=== PATIENT | female | born 1950 | race Two or more races ===

== ENCOUNTER → 2024-08-08 | Outpatient (CLI) | payer OTHER, MEDICAID, SELFPAY ==
[2024-08-08 11:16] LABS: Collection Type, Urine Clean Catch
[2024-08-08 11:34] LABS: Basophils # (Auto) 0.1 Thou/mm3 (0.0-0.2); Basophils % (Auto) 1 % (0-2.5); Eosinophils # (Auto) 0.3 Thou/mm3 (0.0-0.5); Eosinophils % (Auto) 6 % (0-10); Hematocrit 37.1 % (36.0-46.0); Hemoglobin 12.3 g/dL (12.0-16.0); Immature Granulocytes % (Auto) 1 % (0-0); Immature Granulocytes Auto 0.03 Thou/mm3 (0.00-0.00); Lymphocytes # (Auto) 1.3 Thou/mm3 (1.0-4.8); Lymphocytes % (Auto) 22 % (10-50); Mean Corpuscular HGB Conc 33.2 g/dl (31.0-37.0); Mean Corpuscular Hemoglobin 27.3 pg (25.0-35.0); Mean Corpuscular Volume 82 fL (80-100); Monocytes # (Auto) 0.5 Thou/mm3 (0.0-0.8); Monocytes % (Auto) 8 % (0-12); Neutrophils # (Auto) 3.5 Thou/mm3 (1.8-7.7); Neutrophils % (Auto) 62 % (37-80); Nucleated Red Blood Cell % 0 /100 WBC (0); Platelet Count 310 Thou/mm3 (140-440); RDW Standard Deviation 42.3 fL (36.4-46.3); Red Blood Count 4.51 Miln/mm3 (4.00-5.20); White Blood Count 5.6 Thou/mm3 (3.6-11.0)
[2024-08-08 11:39] LABS: Bilirubin,Urine Negative (Negative); Blood,Urine Negative (Negative); Clarity,Urine Clear (Clear/Hazy); Color,Urine Lt-Yellow (Lt Yel-Yel); Culture Indicated,Urine Not Indicated; Glucose, Urine Negative (Negative); Ketones,Urine Negative (Negative); Leukocyte Esterase,Urine Negative (Negative); Nitrite,Urine Negative (Negative); PH,Urine 6.5 (5.0-7.0); Protein,Urine Negative (Neg - Trace); RBC,Urine < 1 /hpf (0-3); Specific Gravity,Urine 1.013 (1.001-1.035); Squamous Epithelial Cell,Urine 7 /hpf (0-5); Urobilinogen,Urine Negative mg/dL (0.0-1.0); WBC,Urine 2 /hpf (0-5)
[2024-08-08 12:06] LABS: Alanine Aminotransferase 17 U/L (10-49); Albumin, Serum 4.7 gm/dL (3.4-4.8); Alkaline Phosphatase 89 U/L (46-116); Anion Gap 6 (7-16); Aspartate Amino Transferase 21 U/L (0-34); BUN/Creatinine Ratio 13 Ratio (12-20); Bilirubin,Total 0.6 mg/dL (0.3-1.2); Blood Urea Nitrogen 13 mg/dL (9-23); Calcium 10.8 mg/dL (8.3-10.6); Calcium (Corrected) 10.8 mg/dL (8.5-10.1); Carbon Dioxide 29.4 mMol/L (20.0-31.0); Cardiac Risk Estimate 3.7 RATIO (3.7-5.6); Chloride 103 mMol/L (98-107); Cholesterol 207 mg/dL (132-200); Free T4 (Free Thyroxine) 1.29 ng/dL (0.89-1.76); Globulin 2.3 gm/dL (2.3-3.5); Glucose 89 mg/dL (74-106); HDL Cholesterol 56 mg/dL (40-60); LDL Cholesterol,Calculated 123 mg/dL (0-130); Osmolality,Calculated 274 (275-295); Potassium 4.1 mMol/L (3.4-5.1); Sodium 138 mMol/L (136-145); Thyroid Stimulating Hormone 2.96 uIU/mL (0.55-4.78); Triglycerides 138 mg/dL (30-150); eGFR 58 See Note
== END | disposition home or self-care (01) ==
PROVIDERS: PCP Internal Medicine; Referring Provider Internal Medicine; Visit Provider Internal Medicine
DX: I10 Essential (primary) hypertension (principal)
CPT/HCPCS: 36415; 80053; 80061; 81001; 84439; 84443; 85025

== ENCOUNTER → 2024-10-08 | Outpatient (CLI) | payer OTHER, MEDICAID, SELFPAY ==
--- NOTE | 2024-10-08 10:31 | XR_ITS ---
Examination: PA lateral chest 2 views TECHNIQUE: Upright PA lateral chest 2 views Exam date and time: October 08, 2024 at 10:50 AM Comparison 11/23/2021 INDICATIONS: Coughing beginning 4 months ago. FINDINGS: Minimal accentuation basilar bronchovascular markings Mild hyperexpansion Thoracic levoscoliosis 15 degrees Normal heart size IMPRESSION: Mild bibasilar bronchitis pattern
[2024-10-08 13:46] LABS: Basophils # (Auto) 0.1 Thou/mm3 (0.0-0.2); Basophils % (Auto) 1 % (0-2.5); Eosinophils # (Auto) 0.8 Thou/mm3 (0.0-0.5); Eosinophils % (Auto) 11 % (0-10); Hematocrit 35.6 % (36.0-46.0); Hemoglobin 12.1 g/dL (12.0-16.0); Immature Granulocytes % (Auto) 0 % (0-0); Immature Granulocytes Auto 0.03 Thou/mm3 (0.00-0.00); Lymphocytes # (Auto) 1.2 Thou/mm3 (1.0-4.8); Lymphocytes % (Auto) 18 % (10-50); Mean Corpuscular Hemoglobin 28.1 pg (25.0-35.0); Mean Corpuscular Volume 83 fL (80-100); Monocytes # (Auto) 0.7 Thou/mm3 (0.0-0.8); Monocytes % (Auto) 10 % (0-12); Neutrophils % (Auto) 60 % (37-80); Nucleated Red Blood Cell % 0 /100 WBC (0); Platelet Count 320 Thou/mm3 (140-440); RDW Standard Deviation 43.1 fL (36.4-46.3); Red Blood Count 4.31 Miln/mm3 (4.00-5.20); White Blood Count 6.7 Thou/mm3 (3.6-11.0)
[2024-10-09 14:35] LABS: Cocci Serology, IgM Negative (Negative)
[2024-10-10 14:13] LABS: Cocci Serology, IgG Negative (Negative)
== END | disposition home or self-care (01) ==
LOC: COPL 10:22
PROVIDERS: PCP Internal Medicine; Referring Provider Internal Medicine; Visit Provider Radiology Diagnostic Radiology
DX: R05.9 Cough, unspecified (principal)
CPT/HCPCS: 36415; 71046; 85025; 86331; 86635

== ENCOUNTER → 2024-12-03 | Outpatient (CLI) | payer OTHER, MEDICAID, SELFPAY ==
--- NOTE | 2024-12-03 13:21 | XR_ITS ---
Examination: Sinus series 3 views TECHNIQUE: Rosalva Frank lateral sinus series 3 views Exam date and time: December 03, 2024 1348 hours INDICATIONS: Sinus pressure and pain years. FINDINGS: Opacity in the frontal ethmoid air cells and maxillary antra No fluid levels No retention cysts IMPRESSION: Chronic sinusitis
[2024-12-03 14:51] LABS: Albumin, Serum 5.4 gm/dL (3.4-4.8); Anion Gap 9 (7-16); BUN/Creatinine Ratio 18 Ratio (12-20); Blood Urea Nitrogen 18 mg/dL (9-23); Calcium 10.8 mg/dL (8.3-10.6); Calcium (Corrected) 10.8 mg/dL (8.5-10.1); Carbon Dioxide 28.6 mMol/L (20.0-31.0); Chloride 105 mMol/L (98-107); Glucose 96 mg/dL (74-106); Osmolality,Calculated 286 (275-295); Phosphorous 2.9 mg/dL (2.4-5.1); Potassium 3.8 mMol/L (3.4-5.1); Sodium 143 mMol/L (136-145); eGFR 58 See Note
== END | disposition home or self-care (01) ==
LOC: COPL 13:14
PROVIDERS: PCP Internal Medicine; Referring Provider Internal Medicine; Visit Provider Internal Medicine
DX: J32.9 Chronic sinusitis, unspecified (principal); I10 Essential (primary) hypertension
CPT/HCPCS: 36415; 70220; 80069; 83735

== ENCOUNTER → 2025-01-07 | Outpatient (CLI) | payer OTHER, MEDICAID, SELFPAY ==
--- NOTE | 2025-01-07 09:00 | XR_ITS ---
Examination: Breast ultrasound complete, bilateral Date and time of exam: January 07, 2025 0929 hrs. Indications: History bilateral breast cystic disease Technique: Real-time grayscale ultrasonographic imaging bilateral breasts, including all 4 quadrants as well as nipple retroareolar and axillary regions. Findings: Sonographic images right breast Multiple benign cysts 2:00 nodule 4 x 4 millimeter calcification Sonographic images left breast Multiple benign cysts No solid nodules Impression: BI-RADS Category 2: Benign findings
== END | disposition home or self-care (01) ==
PROVIDERS: PCP Internal Medicine; Referring Provider Internal Medicine; Visit Provider Internal Medicine
DX: N63.0 Unspecified lump in unspecified breast (principal)
CPT/HCPCS: 76641

== ENCOUNTER → 2025-03-31 | Outpatient (CLI) | payer OTHER, MEDICAID, SELFPAY ==
[2025-03-31 12:58] LABS: Urea Breath Test Negative (Negative)
== END | disposition home or self-care (01) ==
LOC: COPL 11:54
PROVIDERS: PCP Internal Medicine; Referring Provider Internal Medicine; Visit Provider Internal Medicine
DX: K30 Functional dyspepsia (principal)
CPT/HCPCS: 83013; 83014

== ENCOUNTER → 2025-04-15 | Outpatient (CLI) | payer OTHER, MEDICAID, SELFPAY ==
--- NOTE | 2025-04-15 11:45 | XR_ITS ---
Examination: Screening digital mammography, bilateral Computer aided detection 3-D breast Tomosynthesis, bilateral Date and time of exam: April 15, 2025 1134 hours Compared to mammograms dating to October 25, 2020 Indication: Screening Technique: Nonmagnified MLO, CC views of the breasts to been obtained, reconstructed from 3-D Tomosynthesis images. R2 computer aided detection program utilized for evaluation of suspicious masses and/or abnormal calcifications. 3-D Tomosynthesis images obtained. Findings: The breasts are heterogeneously dense, which may obscure small masses 14 mm focal asymmetry outer left breast CC view, 5.2 cm from the nipple Impression: BI-RADS Category 0: Incomplete: Need additional imaging evaluation Recommend follow-up spot tomographic views upper outer quadrant left breast to further assess 14 mm focal asymmetry outer left breast CC view, 5.2 cm from the nipple Recommend bilateral breast sonography follow-up to complete the workup
== END | disposition home or self-care (01) ==
PROVIDERS: PCP Internal Medicine; Referring Provider Internal Medicine; Visit Provider Internal Medicine
DX: Z12.31 Encounter for screening mammogram for malignant neoplasm of breast (principal); R92.333 Mammographic heterogeneous density, bilateral breasts; N64.89 Other specified disorders of breast
CPT/HCPCS: 77063; 77067

== ENCOUNTER → 2025-04-21 | Outpatient (CLI) | payer OTHER, MEDICAID, SELFPAY ==
--- NOTE | 2025-04-21 13:33 | XR_ITS ---
Examination: Abdomen AP single view Technique: AP portable supine abdomen, single view Exam date and time: April 21, 2025 1417 hours INDICATIONS: Abdominal distention beginning 3 months ago. FINDINGS: Moderate stool throughout the colon. No obstruction. Cervical clips upper right abdomen. Moderate osteopenia IMPRESSION: Moderate stool throughout the colon
== END | disposition home or self-care (01) ==
PROVIDERS: PCP Internal Medicine; Referring Provider Specialist; Visit Provider Specialist
DX: K59.00 Constipation, unspecified (principal); R14.0 Abdominal distension (gaseous)
CPT/HCPCS: 74018

== ENCOUNTER → 2025-05-18 | Outpatient (CLI) | payer OTHER, MEDICAID, SELFPAY ==
--- NOTE | 2025-05-18 10:00 | XR_ITS ---
Examination: Breast ultrasound complete, bilateral Date and time of exam: May 18, 2025 1011 hours INDICATIONS: Mammogram April 15, 2025 14 mm focal asymmetry outer left breast 5.2 cm from the nipple Technique: Real-time grayscale ultrasonographic imaging bilateral breasts, including all 4 quadrants as well as nipple retroareolar and axillary regions. Findings: Sonographic images right breast Multiple benign cysts 1:00 nodule circumscribed 4 x 4 millimeter 2:00 nodule versus calcification 4 x 5 mm Sonographic images left breast Benign cysts No solid nodules IMPRESSION: BI-RADS Category 2: Benign findings
--- NOTE | 2025-05-18 11:00 | XR_ITS ---
Examination: Diagnostic digital mammography, unilateral, left Computer aided detection 3-D breast Tomosynthesis, unilateral Date and time of exam: May 18, 2025 1033 hours INDICATIONS: Mammogram April 15, 2025 14 mm focal asymmetry outer left breast CC view, 5.2 cm from the nipple Technique: Nonmagnified MLO, CC views of the left breast have been obtained, reconstructed from 3-D Tomosynthesis images. R2 computer aided detection program utilized for evaluation of suspicious masses and/or abnormal calcifications. 3-D Tomosynthesis images obtained. Findings: The breast is heterogeneously dense, which may obscure small masses Focal asymmetry remains outer left breast on the spot compression views Impression: BI-RADS category 3: Probably benign findings One additional 6 month left mammogram follow-up is needed
== END | disposition home or self-care (01) ==
PROVIDERS: PCP Internal Medicine; Referring Provider Internal Medicine; Visit Provider Internal Medicine
DX: R92.333 Mammographic heterogeneous density, bilateral breasts (principal)
CPT/HCPCS: 76641; 77061; 77065; G0279

== ENCOUNTER 2025-05-29 09:10 | Day surgery (SDC) | payer OTHER, MEDICAID, SELFPAY ==
[2025-05-28 12:05] VITALS: BMI 24.9
[2025-05-29] VITALS (10 sets, daily range): BP systolic 129–221; BP diastolic 58–124; PULSE 65–98; RESP 10–19; TEMP 36.7–37.5; O2SAT 93–100; BMI 24.9
[2025-05-29] MEDS: SODIUM CHLORIDE 0.9% 500 ML 500 ML 20 ML IV (10:42)
[2025-05-29] MEDS: BENZOCAINE 20% (Hurricaine) SPRAY 1 DOSE TOP (10:42)
[2025-05-29] MEDS: MIDAZOLAM INJ 1 MG/ML VIAL 2 ML (ASD USE ONLY) 2 MG IVP (10:47)
[2025-05-29] MEDS: fentaNYL CIT INJ 50 mCg/ML AMP 2ML (ASD USE ONLY) IVP (10:47)
[2025-05-29] MEDS: hydrALAZINE INJ 20 MG/ML VIAL 10 MG IM (10:56)
== END 2025-05-29 12:00 | disposition home or self-care (01) ==
PROVIDERS: PCP Anesthesiology; Referring Provider Specialist; Visit Provider Specialist
PROC: (CPT 43239; principal; 2025-05-29 10:00)
DX: K22.2 Esophageal obstruction (principal); K20.90 Esophagitis, unspecified without bleeding; Z90.49 Acquired absence of other specified parts of digestive tract; K57.30 Diverticulosis of large intestine without perforation or abscess without bleeding; K64.8 Other hemorrhoids; K64.4 Residual hemorrhoidal skin tags; K29.50 Unspecified chronic gastritis without bleeding
CPT/HCPCS: 43248; 43239; A4649; C1769; J0360; J1200; J2250; J3010; J7999; A9270

== ENCOUNTER → 2025-07-29 | Outpatient (CLI) | payer OTHER, MEDICAID, SELFPAY ==
--- NOTE | 2025-07-29 14:56 | XR_ITS ---
Examination: Shoulder, right, 3 views Technique: Shoulder AP internal rotation, AP external rotation, Y view shoulder, 3 views Exam date and time : July 29, 2025, 1518 hours INDICATIONS: Right shoulder pain 1 week. FINDINGS: Mild to moderate narrowing glenohumeral joint Mild right shoulder calcific tendinitis No shoulder fracture or dislocation IMPRESSION: Mild osteoarthritis glenohumeral joint Mild right shoulder calcific tendinitis
== END | disposition home or self-care (01) ==
PROVIDERS: PCP Internal Medicine; Referring Provider Internal Medicine; Visit Provider Internal Medicine
DX: M19.011 Primary osteoarthritis, right shoulder (principal); M75.31 Calcific tendinitis of right shoulder
CPT/HCPCS: 73030